=== PATIENT | female | born 1975 | race Caucasian/White ===

== ENCOUNTER → 2016-09-08 | Day surgery (SDC) | payer OTHER ==
[~2016-09-08] VITALS: Ht 170.7 cm; Wt 168.1 kg
== END | disposition home or self-care (01) ==
LOC: RAD.S 07:42 → EDSTATUS 09:00 → RAD.S 09:00
PROC: 0JPT3XZ Removal of Tunneled Vascular Access Device from Trunk Subcutaneous Tissue and Fascia, Percutaneous Approach (ICD-10-PCS; principal; 2016-09-08)
DX: Z45.2 Encounter for adjustment and management of vascular access device (principal); Z85.41 Personal history of malignant neoplasm of cervix uteri; Z88.1 Allergy status to other antibiotic agents; Z88.8 Allergy status to other drugs, medicaments and biological substances; Z87.891 Personal history of nicotine dependence; Z79.899 Other long term (current) drug therapy